=== PATIENT | male | born 2000 | race Caucasian/White ===

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

== ENCOUNTER 2019-04-19 10:53 | Emergency (ER) | payer OTHER ==
[2019-04-19] MEDS: DEXAMETHASONE 10 MG/ML 1 ML INJ IM (11:56)
[2019-04-19] MEDS: KETOROLAC 60 MG INJ IM (11:56)
== END 2019-04-19 12:30 | disposition home or self-care (01) ==
LOC: FTE 10:53
DX: M54.42 Lumbago with sciatica, left side (principal)
CPT/HCPCS: 96372; 99284-25